=== PATIENT | male | born 1990 ===

== ENCOUNTER → 2024-11-24 | Outpatient (CLI) | payer MEDICARE, MEDICAID ==
[2024-11-24] VITALS (22 sets, daily range): BP systolic 103–129; BP diastolic 69–91; PULSE 53–72
== END | disposition home or self-care (01) ==
LOC: CARD DIAG 08:36
PROVIDERS: ATTEND Internal Medicine Interventional Cardiology
DX: R42 Dizziness and giddiness (principal)
CPT/HCPCS: 93660